=== PATIENT | female | born 1990 | race African-American/Black ===

== ENCOUNTER 2021-04-29 15:43 | Outpatient (CLI) | payer OTHER | END 2021-04-29 19:01 | disposition home or self-care (01) | LOC: RAD 15:43 | PROVIDERS: ATTEND Nurse Practitioner Family | DX: R10.11 Right upper quadrant pain (principal); R35.0 Frequency of micturition ==

== ENCOUNTER 2022-02-25 12:29 | Outpatient (CLI) | payer OTHER | END 2022-02-25 19:21 | disposition home or self-care (01) | LOC: US 12:29 | PROVIDERS: ATTEND Nurse Practitioner Family | DX: R10.2 Pelvic and perineal pain (principal) ==